=== PATIENT | male | born 1960 ===

== ENCOUNTER 2017-03-23 11:23 | Emergency (ER) | payer SELFPAY ==
[2017-03-23 11:27] VITALS: BP 155/74; PULSE 59; TEMP 98; O2SAT 100
[2017-03-23 12:22] LABS: RBC URINE < 1 /hpf (0-3); URINE BILIRUBIN NEGATIVE (NEGATIVE); URINE BLOOD NEGATIVE (NEGATIVE); URINE COLOR Yellow (YELLOW); URINE GLUCOSE (UA) NORMAL (Normal); URINE KETONE NEGATIVE (NEGATIVE); URINE LEUKOCYTE ESTERASE TRACE Leu/uL (Negative); URINE PROTEIN NEGATIVE (NEGATIVE); URINE UROBILINOGEN NORMAL mg/dL (0.2-1.0); WBC URINE < 1 /hpf (0-5)
--- NOTE | 2017-03-23 12:23 | C.PDOC ---
History Of Present Illness 56 year old male presents to the ED c/o irritation to his penis for 2 weeks associated with itching. Pt notes "my was getting checked so I decided to get this checked." Patient denies any penile discharge, pain to his testicles, Hx of STDs, fever. Has not tried any medication. No h/o similar episodes. Time Seen by Provider: 03/23/17 11:40 Chief Complaint (Nursing): Male Genitourinary History Per: Patient History/Exam Limitations: no limitations Onset/Duration Of Symptoms: Days Current Symptoms Are (Timing): Still Present Quality Of Discomfort: Burning Associated Symptoms: denies: Fever, Nausea, Vomiting, Urinary Symptoms Recent travel outside of the [place]: No Additional History Per: Patient Past Medical History Reviewed: Historical Data, Nursing Documentation, Vital Signs Vital Signs: Last Vital Signs Temp 98 F 03/23/17 11:25 Pulse 59 L 03/23/17 11:25 Resp 18 03/23/17 12:57 BP 155/74 H 03/23/17 11:25 Pulse Ox 100 03/23/17 12:59 - Medical History PMH: HTN Surgical History: No Surg Hx Family History: States: Unknown Family Hx - Social History Hx Alcohol Use: No Hx Substance Use: No - Immunization History Hx Tetanus Toxoid Vaccination: No Hx Influenza Vaccination: No Review Of Systems Constitutional: Negative for: Fever, Chills Cardiovascular: Negative for: Chest Pain Respiratory: Negative for: Cough, Shortness of Breath Gastrointestinal: Negative for: Nausea, Vomiting, Abdominal Pain Genitourinary: Positive for: Dysuria, Rash. Negative for: Hematuria, Penile Discharge, Scrotal Pain Physical Exam - Physical Exam Appears: Non-toxic, No Acute Distress Skin: Normal Color, Warm, Dry Head: Atraumatic, Normacephalic Eye(s): bilateral: Normal Inspection, EOMI Nose: Normal Oral Mucosa: Moist Neck: Normal ROM, Supple Chest: Symmetrical Respiratory: No Accessory Muscle Use Gastrointestinal/Abdominal: Soft, No Tenderness Male Genital: No Testicular Tenderness, No Testicular Swelling, No Inguinal Tenderness, No Inguinal Swelling, Other (Pt noncurcumcised. With retration of the foreskin, mild ertyhema of the head of penis with moist appearance. No discharge. No ulcerations) Neurological/Psych: Oriented x3, Normal Speech, Normal Cognition ED Course And Treatment O2 Sat by Pulse Oximetry: 100 (On RA) Pulse Ox Interpretation: Normal Progress Note: Plan: -Urine culture collected. -UA ordered. Offered STD testing, pt refused. Vehicle Modification Technician and communications systems engineer ALICIA Guy. Instructed treatment and follow up with urology in 1-2 days. Disposition - Disposition Referrals: Chemo Roe Jr., MD [Staff Provider] - Disposition: HOME/ ROUTINE Disposition Time: 12:59 Condition: STABLE Additional Instructions: Vaya a de la rosa mdico o la clnica en 1-3 sosa sin falta, para mas evaluacin. [place] los medicamentos wil indicado. Volver a la lasha de emergencia en cualquier momento si los sntomas persisten o empeoran. Prescriptions: Bacitracin OINT 1 applic TP BID #1 tube Nystatin [Nystatin Cream] 1 appl TP BID #1 tube Instructions: Nem[place]io (ED) Forms: Checkr (Kyrgyz) Print Language: ITALIAN - Clinical Impression Clinical Impression: Balanitis - PA / IP TECHNOLOGY TRANSACTIONS ATTORNEY / Resident Statement MD/DO has reviewed & agrees with the documentation as recorded. - Scribe Statement The provider has reviewed the documentation as recorded by the Scribe Lowell Goodwin All medical record entries made by the Scribe were at my direction and personally dictated by me. I have reviewed the chart and agree that the record accurately reflects my personal performance of the history, physical exam, medical decision making, and the department course for this patient. I have also personally directed, reviewed, and agree with the discharge instructions and disposition.
[2017-03-23 13:00] VITALS: RESP 18
== END 2017-03-23 13:00 | disposition home or self-care (01) ==
LOC: C.ER 11:23
DX: N48.1 Balanitis (principal)

== ENCOUNTER 2017-08-01 09:12 | Emergency (ER) | payer OTHER ==
[2017-08-01 09:21] VITALS: BP 139/79; PULSE 91; RESP 18; TEMP 98.6; O2SAT 98
--- NOTE | 2017-08-01 09:31 | C.PDOC ---
History Of Present Illness Pt c/o leg cramps mostly while going to bed at night. Sometimes in the right, but mostly in the left. No current symptoms. Time Seen by Provider: 08/01/17 09:23 Chief Complaint (Nursing): Lower Extremity Problem/Injury History Per: Patient Onset/Duration Of Symptoms: Days (for months), Intermittent Episodes Current Symptoms Are (Timing): Still Present Severity: Moderate Additional History Per: Prior Records Past Medical History Reviewed: Historical Data, Nursing Documentation, Vital Signs Vital Signs: Last Vital Signs Temp 98.6 F 08/01/17 09:17 Pulse 91 H 08/01/17 09:17 Resp 18 08/01/17 09:17 BP 139/79 08/01/17 09:17 Pulse Ox 98 08/01/17 09:17 - Medical History PMH: HTN Family History: States: Unknown Family Hx - Social History Hx Alcohol Use: No Hx Substance Use: No - Immunization History Hx Tetanus Toxoid Vaccination: No Hx Influenza Vaccination: No Hx Pneumococcal Vaccination: No Review Of Systems Except As Marked, All Systems Reviewed And Found Negative. Constitutional: Negative for: Fever, Weakness Cardiovascular: Negative for: Chest Pain Respiratory: Negative for: Shortness of Breath, Hemoptysis Gastrointestinal: Negative for: Vomiting, Abdominal Pain Musculoskeletal: Negative for: Neck Pain, Back Pain, Foot Pain Skin: Negative for: Rash Neurological: Negative for: Weakness, Numbness Psych: Positive for: Other (Insomnia). Negative for: Suicidal ideation Physical Exam - Physical Exam Appears: Non-toxic, No Acute Distress Skin: Normal Color, Warm, Dry, No Rash Head: Atraumatic, Normacephalic Eye(s): bilateral: Normal Inspection, PERRL, EOMI Neck: Normal ROM, Supple Cardiovascular: Rhythm Regular Respiratory: Normal Breath Sounds, No Accessory Muscle Use Back: No Vertebral Tenderness Extremity: Normal ROM, No Tenderness, No Pedal Edema, No Calf Tenderness, Capillary Refill (wnl), No Swelling Extremity: Bilateral: Normal Color And Temperature Pulses: Left Dorsalis Pedis: Normal Neurological/Psych: Oriented x3, Normal Motor, Normal Sensation ED Course And Treatment O2 Sat by Pulse Oximetry: 98 Pulse Ox Interpretation: Normal Disposition Counseled Patient/Family Regarding: Diagnosis, Need For Followup, Rx Given - Disposition Referrals: at [facility] [Outside] Disposition: HOME/ ROUTINE Disposition Time: 09:32 Condition: STABLE Additional Instructions: Follow up in the clinic for further evaluation and treatment. Return to the ER if you develop swelling, redness, pain, numbness, suicidal thoughts, worsening of symptoms or if you have any other concerns. Prescriptions: DiphenhydrAMINE [Benadryl] 50 mg PO HS PRN #30 cap PRN Reason: Insomnia Instructions: Nocturnal (Nighttime) Leg Cramps (DC), Insomnia (DC) Forms: Gen Discharge Inst Maldivian Print Language: MAURITANIAN - Clinical Impression Clinical Impression: Leg cramps, Insomnia
== END 2017-08-01 09:57 | disposition home or self-care (01) ==
LOC: C.ER 09:12
DX: R25.2 Cramp and spasm (principal); G47.00 Insomnia, unspecified

== ENCOUNTER 2018-05-22 08:38 | Emergency (ER) | payer OTHER ==
--- NOTE | 2018-05-22 09:51 | C.PDOC ---
History Of Present Illness 57 y/o male presents to the ER complaining of bilateral leg swelling which has been present for the past 2 months. Patient states that he did not have direct trauma or falls. Denies having weakness, numbness, CP, and SOB. Time Seen by Provider: 05/22/18 09:48 Chief Complaint (Nursing): Lower Extremity Problem/Injury History Per: Patient History/Exam Limitations: no limitations Onset/Duration Of Symptoms: Days Current Symptoms Are (Timing): Still Present Severity: Moderate Past Medical History Reviewed: Historical Data, Nursing Documentation, Vital Signs Vital Signs: Last Vital Signs Temp 98.5 F 05/22/18 08:55 Pulse 77 05/22/18 08:55 Resp 17 05/22/18 08:55 BP 148/75 05/22/18 08:55 Pulse Ox 98 05/22/18 08:55 - Medical History PMH: HTN Surgical History: No Surg Hx Family History: States: No Known Family Hx - Social History Hx Alcohol Use: No Hx Substance Use: No - Immunization History Hx Tetanus Toxoid Vaccination: No Hx Influenza Vaccination: No Hx Pneumococcal Vaccination: No Review Of Systems Except As Marked, All Systems Reviewed And Found Negative. Constitutional: Negative for: Fever, Chills Cardiovascular: Negative for: Chest Pain Respiratory: Negative for: Shortness of Breath Musculoskeletal: Positive for: Other (bilateral leg swelling) Physical Exam - Physical Exam Appears: Non-toxic, No Acute Distress Skin: Normal Color, Warm, Dry Head: Atraumatic, Normacephalic Eye(s): bilateral: Normal Inspection Nose: Normal Oral Mucosa: Moist Neck: Supple Chest: Symmetrical Cardiovascular: Rhythm Regular Respiratory: Normal Breath Sounds, No Rales, No Rhonchi, No Wheezing Gastrointestinal/Abdominal: Soft, No Tenderness, No Guarding, No Rebound Extremity: Normal ROM, Swelling (bilateral leg swelling ( R>L)) Pulses: Left Dorsalis Pedis: Normal, Right Dorsalis Pedis: Normal Neurological/Psych: Oriented x3, Normal Speech ED Course And Treatment - Laboratory Results Result Diagrams: 05/22/18 10:41 05/22/18 10:41 O2 Sat by Pulse Oximetry: 98 (RA) Pulse Ox Interpretation: Normal Medical Decision Making Medical Decision Making: Plan: --Labs --Venous Duplex Scan- Low Ext. Bi. dvt study neg. labs neg. no cardipulm complaints bnp neg. sleepign in nad. advise outpt fu. return precautions Disposition - Disposition Disposition: HOME/ ROUTINE Disposition Time: 13:00 Condition: STABLE Additional Instructions: follow up with your doctor/clinic. you will need further managment as an outpatient. return to any er with worsening. Instructions: Dependent Edema (DC) Forms: Tu Closet Mi Closet (Kiswahili) - Clinical Impression Clinical Impression: Leg swelling - Scribe Statement The provider has reviewed the documentation as recorded by the Maria Alejandra Green Provider Attestation: All medical record entries made by the Maria Alejandra were at my direction and personally dictated by me. I have reviewed the chart and agree that the record accurately reflects my personal performance of the history, physical exam, medical decision making, and the department course for this patient. I have also personally directed, reviewed, and agree with the discharge instructions and disposition.
[2018-05-22 10:47] LABS: BASO % 0.8 % (0.0-2.0); EOS # 0.2 K/uL (0.0-0.7); EOS % 4.9 % (0.0-4.0); HEMOGLOBIN 14.5 g/dL (12.0-18.0); LYMPH # 1.8 K/uL (1.0-4.3); LYMPH % 38.9 % (20.0-40.0); MEAN CORPUSCULAR HEMOGLOBIN 30.9 pg (27.0-31.0); MEAN CORPUSCULAR HGB CONC 34.3 g/dL (33.0-37.0); MEAN PLATELET VOLUME 9.2 fL (7.2-11.7); MONO # 0.6 K/uL (0.0-0.8); MONO % 12.7 % (0.0-10.0); NEUT % 42.7 % (50.0-75.0); NRBC % 0.1 % (0.0-2.0); RBC 4.68 Mil/uL (4.40-5.90); RED CELL DISTRIBUTION WIDTH 13.9 % (11.5-14.5); WHITE BLOOD COUNT 4.7 K/uL (4.8-10.8)
[2018-05-22 10:55] LABS: PROTHROMBIN TIME 11.2 SECONDS (9.7-12.2)
[2018-05-22 11:03] LABS: ALB/GLOB RATIO 1.3 (1.0-2.1); ALBUMIN 4.1 g/dL (3.5-5.0); ALT/SGPT 44 U/L (21-72); AST/SGOT 44 U/L (17-59); BLOOD UREA NITROGEN 19 mg/dL (9-20); CALCIUM 9.1 mg/dl (8.6-10.4); GFR NON-AFRICAN AMERICAN > 60
[2018-05-22 12:39] LABS: B-TYPE NATRIURETIC PEPTIDE 53.9 pg/mL (0-900)
[2018-05-22 13:26] VITALS: BP 122/66; PULSE 67; RESP 18; TEMP 97.7
--- NOTE | 2018-05-22 13:40 | VASCLAB ---
Date of service: 05/22/2018 PROCEDURE: Lower Extremity Venous Duplex Exam. HISTORY: Leg swelling PRIORS: None. TECHNIQUE: Bilateral common femoral, femoral, popliteal and posterior tibial, peroneal and great saphenous veins were evaluated. Flow was assessed with color Doppler, compressibility, assessment of phasic flow and augmentation response. Report prepared by ARABELLA Phipps FINDINGS: RIGHT: 1. Common Femoral Vein: 1.1. Compressibility - Fully compressible: Thrombus - None : Flow - Phasic: Augmentation -Normal: Reflux - None. 2. Femoral Vein: 2.1. Compressibility - Fully compressible: Thrombus - None : Flow - Phasic: Augmentation -Normal: Reflux - None. 3. Popliteal Vein: 3.1. Compressibility - Fully compressible: Thrombus - None : Flow - Phasic: Augmentation -Normal: Reflux - None. 4. Posterior Tibial Vein: 4.1. Compressibility - Fully compressible: Thrombus - None: Flow - Phasic: Augmentation -Normal: Reflux - None. 5. Peroneal Vein: 5.1. Compressibility - Fully compressible: Thrombus - None: Flow - Phasic: Augmentation -Normal: Reflux - None. 6. Great Saphenous Vein: 6.1. Compressibility - Fully compressible: Thrombus - None: Flow - Phasic: Augmentation - Normal: Reflux - None. LEFT: 1. Common Femoral Vein: 1.1. Compressibility - Fully compressible: Thrombus - None: Flow - Phasic: Augmentation -Normal: Reflux - None. 2. Femoral Vein: 2.1. Compressibility - Fully compressible: Thrombus - None: Flow - Phasic: Augmentation -Normal: Reflux - None. 3. Popliteal Vein: 3.1. Compressibility - Fully compressible: Thrombus - None : Flow - Phasic: Augmentation -Normal: Reflux - None. 4. Posterior Tibial Vein: 4.1. Compressibility - Fully compressible: Thrombus - None: Flow - Phasic: Augmentation -Normal: Reflux - None. 5. Peroneal Vein: 5.1. Compressibility - Fully compressible: Thrombus - None: Flow - Phasic: Augmentation -Normal: Reflux - None. 6. Great Saphenous Vein: 6.1. Compressibility - Fully compressible: Thrombus - None: Flow - Phasic: Augmentation - Normal: Reflux - None. OTHER FINDINGS: Right: None significant. Left: None significant. IMPRESSION: Right: No evidence of deep or superficial vein thrombosis of the right lower extremity. Normal valve function noted of the right side. Left: No evidence of deep or superficial vein thrombosis of the left lower extremity. Normal valve function noted of the left side.
[2018-05-22 16:14] VITALS: O2SAT 98
== END 2018-05-22 13:25 | disposition home or self-care (01) ==
LOC: C.ER 08:38
DX: M79.89 Other specified soft tissue disorders (principal)